=== PATIENT | female | born 1955 | race Caucasian/White ===

== ENCOUNTER → 2021-02-20 | Day surgery (SDC) | payer MEDICARE, OTHER ==
[2021-02-18 15:15] VITALS: BMI 35.2
[~2021-02-20] MED LIST: BENZOCAINE SPRAY 1 CAN TOPICAL ONE; MIDAZOLAM 2 MG/2 ML VIAL IV ONE; SODIUM CHLORIDE 0.9% 500 ML 500 ML IV ONE; fentaNYL (PF) 50 MCG/ML 2 ML AMP IV ONE; fentaNYL (PF) 50 MCG/ML 2 ML AMP ONE
[2021-02-20 10:45] VITALS: TEMP 97.9
[2021-02-20 10:46] LABS: Glucose,Whole Blood 106 mg/dL (75-99)
[2021-02-20 12:56] VITALS: PULSE 52; RESP 16
--- NOTE | 2021-02-20 13:22 | ECHOT ---
TRANSESOPHAGEAL ECHOCARDIOGRAM PERFORMING PHYSICIAN: Flaquito Sanchez MD. PROCEDURE PERFORMED: Transesophageal echocardiogram. INDICATION: TIA. COMPLICATION: None. LEVEL OF SEDATION: Moderate with sedation length of 15 minutes. PROCEDURE: After obtaining an informed consent, explaining the procedure, benefits, risks, complications and alternatives, the patient was brought to the transesophageal echocardiogram suite. A pulse oximetry and heart rate monitors were attached to the patient prior to the procedure. The patient's throat was sprayed using lidocaine locally. Following that, the patient was turned into left lateral position. A bite guard was placed and the patient was then sedated with the above doses of Versed and fentanyl in divided doses. Following that, the transesophageal echocardiogram probe was advanced through the bite guard into the mid esophagus where 2-D echocardiogram images as well as color Doppler images of various cardiac structures were obtained. We evaluated the interatrial septum using 2-D echocardiogram, color Doppler, and contrast study. The procedure was completed. There were no complications. The DIEGO was performed using a 2D echo as well as color Doppler and continuous-wave Doppler. FINDINGS: The left ventricular dimension and systolic function appeared to be within normal limits. The ejection fraction appeared to be in the range of 55-60%. he right ventricle appeared to be within normal size and function. The left atrium appeared to be dilated. The right atrium appeared to be also dilated. Left atrial appendage appeared to be intact. The interatrial septum appeared to be intact as well. Aortic valve is trileaflet valve without stenosis with mild insufficiency. The mitral valve seems to be thickened with moderate to severe MR. There was mild tricuspid regurgitation seen. CONCLUSION: 1. No evidence of cardiac source of embolization. 2. Intact interatrial septum without any PFO or ASD. 3. Intact left atrial appendage without thrombus. 4. Normal left ventricular dimension and systolic function. 5. Normal right ventricular dimension and systolic function. 6. Severely dilated left atrium. 7. 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 8. Trileaflet aortic valve without stenosis with mild insufficiency. 9. Normal tricuspid valve and pulmonic valve. 10.No evidence of pericardial effusion. MMODL / IJN: [id number] /
[2021-02-20 13:35] VITALS: BP 147/63
== END ==
LOC: CATHCVL 10:11
PROVIDERS: ATTEND Internal Medicine Interventional Cardiology
DX: I08.1 Rheumatic disorders of both mitral and tricuspid valves (principal); I10 Essential (primary) hypertension; E78.5 Hyperlipidemia, unspecified; Z82.49 Family history of ischemic heart disease and other diseases of the circulatory system; Z72.0 Tobacco use; Z20.822 Contact with and (suspected) exposure to COVID-19; Z86.73 Personal history of transient ischemic attack (TIA), and cerebral infarction without residual deficits; Z79.84 Long term (current) use of oral hypoglycemic drugs; Z79.82 Long term (current) use of aspirin; Z79.899 Other long term (current) drug therapy
CPT/HCPCS: 93312; 93320; 93325; 87635; J2250; J3010